=== PATIENT | male | born 1945 | race Caucasian/White ===

== ENCOUNTER 2016-04-26 10:45 | Emergency (ER) ==
[2016-04-26] MEDS ORDERED: NS 1,000 ML IV PRN (11:12)
--- NOTE | 2016-04-26 11:15 | PROVIDER DOCUMENTATION ---
HPI-Neurological Disorder - General Source: patient, family - History of Present Illness-Neuro Headache Location: reports: parietal (left) Severity: reports: mild, moderate Onset/Duration: reports: abrupt, 3 days ago Timing: reports: still present, improving Context: reports: other (confusion, visual changes, dizziness). denies: head injury, recent infection, impaired speech, facial droop, falling, seizure activity Character of Altered Mental Status: reports: confused Any recent trauma/injury?: reports: none Character of Deficits: reports: vision problem/glaucoma. denies: impaired speech, decreased ability to stand, decreased ability to walk, falling New weakness or altered sensation location:: reports: none Cognitive Baseline: alert, oriented x3 Gait Baseline: walks without assistance Associated Symptoms: reports: dizziness - General Chief Complaint: Brain Attack Stated Complaint: POSS STROKE Time Seen by Provider: 04/26/16 11:09 Allergies/Adverse Reactions: Patient Allergies Allergy/AdvReac Type Severity Reaction Status Date / Time Penicillins Allergy Severe ANAPHYLAXIS Verified 04/26/16 11:40 Home Medications: Home Medication List Medication Instructions Recorded Confirmed Last Taken Type Amlodipine [Norvasc] 5 mg PO DAILY 05/24/15 04/26/16 04/25/16 History Aspirin 81 mg PO DAILY 05/24/15 04/26/16 04/25/16 History Carvedilol [Coreg] 25 mg PO BID 05/24/15 04/26/16 04/25/16 History Clopidogrel Bisulfate [Plavix] 75 mg PO DAILY 05/24/15 04/26/16 04/25/16 History Furosemide [Lasix] 40 mg PO DIRECTED PRN 05/24/15 04/26/16 04/25/16 History Glimepiride 2 mg PO DAILY 05/24/15 04/26/16 04/25/16 History Hydrocodone Bit/Homatrop Me-Br 1 each PO PRN PRN 05/24/15 04/26/16 04/25/16 History [Hydrocodone Compound Syrup] Metformin HCl [Metformin HCl ER] 1,000 mg PO DIRECTED 05/24/15 04/26/1604/25 History Tamsulosin [Flomax] 0.4 mg PO DAILY 05/24/15 04/26/16 04/25/16 History Venlafaxine E.r. [Effexor Xr] 150 mg PO DAILY 05/24/15 04/26/16 04/25/16 History Bisacodyl [Dulcolax] 10 mg RI DAILY PRN PRN #0 supp 05/29/15 04/26/16 04/25/16 Rx Clotrimazole [Mycelex Suzy] 10 mg PO Q6HR #0 suzy 05/29/15 04/26/16 Rx Docusate Sodium [Colace] 100 mg PO BID #0 capsule 05/29/15 04/26/16 04/25/16 Rx Hydrocodone/APAP 5 mg/325 mg 1 each PO Q4H PRN PRN #0 tablet 05/29/15 04/26/16 04/25/16 Rx [Freedom-5] Insulin Detemir [Levemir] 20 unit SUBQ DAILY #0 insuln.pen 05/29/15 04/26/1601/30 Rx Lactobacillus Rhamnosus GG 1 each PO BID #0 capsule 05/29/15 04/26/16 04/25/16 Rx [Culturelle] Omeprazole [Prilosec] 40 mg PO DAILY@0700 #0 capsule 05/29/15 04/26/16 04/25/16 Rx Tizanidine [Zanaflex] 4 mg PO BID #0 tablet 05/29/15 04/26/16 04/25/16 Rx - History of Present Illness-Neuro Nature of Presenting Problem: Patient is a 70 y/o M that presents to the ER after 3 days ago while playing cards developed headache(left sided), double vision, and dizziness. Patient symptoms resolved today. Patient denies injury. Patient reports having diplopia and having to use cane since symptoms. His headache is gone but has dizziness. (Lenny No) Review of Systems - Adult - REVIEW OF SYSTEMS - ADULT Constitutional: denies: chills, fever Eyes: reports: double vision. denies: dry eyes, eye pain Ears, Nose, Mouth & Throat: denies: ear discharge, ear pain, sinus problem, throat pain, throat swelling Cardiovascular: denies: chest pain, palpitations, syncope Respiratory: denies: cough, shortness of breath, wheezing Gastrointestinal: denies: abdominal pain, diarrhea, nausea, vomiting Genitourinary: denies: dysuria, frequency, hematuria Musculoskeletal: reports: no symptoms reported Integumentary: reports: no symptoms reported Neurological: reports: dizziness/vertigo, headache/migraines, loss of balance, other (confusion). denies: numbness, seizure, slurred speech, syncope Psychiatric: reports: no symptoms reported Endocrine: reports: no symptoms reported Hematologic/Lymphatic: reports: no symptoms reported Allergic/Immunologic: reports: no symptoms reported All Other Systems: Reviewed and Negative Past History - Adult - PAST MEDICAL HISTORY-ADULT Review of Records: reports: Old Records Reviewed, Nursing Assessment Review, Medications Reviewed Cardiovascular: reports: CAD, HTN, SD Endocrine/Immune: reports: Diabetes Other Conditions: reports: other cancer (tongue) - PRIOR SURGERIES/PROCEDURES Surgical/Procedure History: reports: cholecystectomy, tonsillectomy, orthopedic (extremity) - IMMUNIZATION STATUS Childhood Immunizations: See Nurse Assessment Flu Vaccine: See Nurse Assessment - FAMILY HISTORY Family History: reviewed, not pertinent - SOCIAL HISTORY Smoking: quit greater than 1 year, cigarettes Living Situation: family Physical Exam- Neurological - Physical Exam-Neuro Initial Vital Signs Reviewed: Yes General Appearance: alert, no apparent distress Eye Exam: bilateral eye: normal inspection, PERRL HENMT: normocephalic/atraumatic, normal ENT inspection, TMs normal, pharynx normal Head Injury: no evidence of injury. 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 negative: sensory deficit Neurologic: statistical reporting analyst II-XII nml as tested, no motor/sensory deficits. negative: aphasia, facial droop, focal weakness, motor weakness, sensory deficit Integumentary: normal color, warm/dry Psych/Mental Status: normal mood/affect, normal thought content, normal thought process, oriented x 3 - Glascow Coma Scale Best Eye Response: (4) open spontaneously Best Verbal Response: (5) oriented Best Motor Response: (6) obeys commands Total Glascow Score: 15 Progress - EKG 1 Time of EKG reading by physician:: 10:55 EKG Read and Signed by:: Tip Chen EKG Interpretation (*Must complete 3 of following elements*): Normal Rate: 63 Rhythm: NSR [place]: normal QRS: normal RI Interval: normal ST Wave: normal - XRAY 1 XRAY Study: Chest Impression: Normal XRAY Interpretation: Nad per - CT/MRI 1 CT Study: Head Impression: Normal CT Results: negative per - CONSULTS/PCP/HOSPITALIST Notification #1 *Consult/PCP/Hospitalist*: Time Discussed: 13:35 Reason/Comments: make appointment next week Consult Disposition: F/U in office - PLAN OF CARE/RESULTS Progress/Plan/Lab Results: plan of care-cva work up Vital Signs Temp Pulse Resp BP Pulse Ox 04/26/16 11:50 98 F 63 20 135/79 98 04/26/16 10:57 62 18 149/72 100 Penicillins Allergy (Severe, Verified 04/26/16 11:40) ANAPHYLAXIS Amlodipine [Norvasc] 5 mg PO DAILY 05/24/15 Aspirin 81 mg PO DAILY 05/24/15 Carvedilol [Coreg] 25 mg PO BID 05/24/15 Clopidogrel Bisulfate [Plavix] 75 mg PO DAILY 05/24/15 Furosemide [Lasix] 40 mg PO DIRECTED PRN 05/24/15 Glimepiride 2 mg PO DAILY 05/24/15 Hydrocodone Bit/Homatrop Me-Br [Hydrocodone Compound Syrup] 1 each PO PRN PRN Metformin HCl [Metformin HCl ER] 1,000 mg PO DIRECTED 05/24/15 Tamsulosin [Flomax] 0.4 mg PO DAILY 05/24/15 Venlafaxine E.r. [Effexor Xr] 150 mg PO DAILY 05/24/15 Bisacodyl [Dulcolax] 10 mg RI DAILY PRN PRN #0 supp 05/29/15 Clotrimazole [Mycelex Suzy] 10 mg PO Q6HR #0 suzy 04/14/16 Docusate Sodium [Colace] 100 mg PO BID #0 capsule 05/29/15 Hydrocodone/APAP 5 mg/325 mg [Freedom-5] 1 each PO Q4H PRN PRN #0 tablet 05/29/15 Insulin Detemir [Levemir] 20 unit SUBQ DAILY #0 insuln.pen 05/29/15 Lactobacillus Rhamnosus GG [Culturelle] 1 each PO BID #0 capsule 05/29/15 Omeprazole [Prilosec] 40 mg PO DAILY@0700 #0 capsule 05/29/15 Tizanidine [Zanaflex] 4 mg PO BID #0 tablet 05/29/15 I&O 04/25/16 04/26/16 04/27/16 06:59 06:59 06:59 Output Total 50 Balance -50 Laboratory 04/26/16 04/26/16 04/26/16 12:00 12:00 12:00 WBC RBC Hgb Hct MCV MCH MCHC RDW Std Deviation Plt Count MPV Immature Gran % (Auto) Neut % (Auto) Lymph % (Auto) [place] % (Auto) Eos % (Auto) Baso % (Auto) Immature Gran # (Auto) Neut # (Auto) Lymph # (Auto) [place] # (Auto) Eos # (Auto) Baso # (Auto) PT 10.0 INR 0.98 PTT (Actin FS) 22.5 Sodium 139 Potassium 4.4 Chloride 103 Carbon Dioxide 25 Anion Gap 11 BUN 17 Creatinine 1.1 Estimated GFR/1.73 m2 > 60 BUN/Creatinine Ratio 15 Glucose 168 H Calculated Osmolality 283 Calcium 8.8 Total Bilirubin 0.38 AST 12 ALT 10 Alkaline Phosphatase 51 Troponin T < 0.010 Total Protein 6.7 Albumin 3.4 L Globulin 3.3 Albumin/Globulin Ratio 1.0 Urine Source Urine Color Urine Turbidity Urine pH Ur Specific [place] Urine Protein Ur Glucose (Stick) Ur Ketones (Stick) Urine Blood Urine Nitrite Urine Bilirubin Urobilinogen Dipstick Urine Leukocytes Urine WBC (Auto) Urine RBC (Auto) U Epithel Cells (Auto) Urine Bacteria (Auto) Urine Opiates Screen Ur Oxycodone Screen Ur Methadone, Qual Ur Barbiturates Screen Ur Phencyclidine Scrn Ur Amphetamines Screen U Benzodiazepines Scrn Urine Cocaine Screen U Cannabinoids Screen 04/26/16 04/26/1604/26/17 12:00 11:10 11:10 WBC 6.94 RBC 4.96 Hgb 13.8 L Hct 41.1 L MCV 82.9 MCH 27.8 MCHC 33.6 RDW Std Deviation 13.0 Plt Count 251 MPV 10.0 Immature Gran % (Auto) 0.0 Neut % (Auto) 73.1 Lymph % (Auto) 16.4 L [place] % (Auto) 7.2 Eos % (Auto) 2.7 Baso % (Auto) 0.6 Immature Gran # (Auto) 0.00 Neut # (Auto) 5.07 Lymph # (Auto) 1.14 L [place] # (Auto) 0.50 Eos # (Auto) 0.19 Baso # (Auto) 0.04 PT INR PTT (Actin FS) Sodium Potassium Chloride Carbon Dioxide Anion Gap BUN Creatinine Estimated GFR/1.73 m2 BUN/Creatinine Ratio Glucose Calculated Osmolality Calcium Total Bilirubin AST ALT Alkaline Phosphatase Troponin T Total Protein Albumin Globulin Albumin/Globulin Ratio Urine Source CLEAN CATCH Urine Color YELLOW Urine Turbidity CLEAR Urine pH 5.5 Ur Specific [place] 1.015 Urine Protein NEGATIVE Ur Glucose (Stick) 300 A Ur Ketones (Stick) NEGATIVE Urine Blood NEGATIVE Urine Nitrite NEGATIVE Urine Bilirubin NEGATIVE Urobilinogen Dipstick NORMAL Urine Leukocytes NEGATIVE Urine WBC (Auto) <10 Urine RBC (Auto) <10 U Epithel Cells (Auto) <10 Urine Bacteria (Auto) NEGATIVE Urine Opiates Screen NONE DETECTED Ur Oxycodone Screen PRESUMPTIVE POSITIVE A Ur Methadone, Qual NONE DETECTED Ur Barbiturates Screen NONE DETECTED Ur Phencyclidine Scrn NONE DETECTED Ur Amphetamines Screen NONE DETECTED U Benzodiazepines Scrn NONE DETECTED Urine Cocaine Screen NONE DETECTED U Cannabinoids Screen NONE DETECTED Orders Category Date Time Status Cardiac Monitoring DIRECTED Care 04/26/16 11:12 Active Finger Stick Blood Sugar (ED) DIRECTED Care 04/26/16 11:12 Active Misc. NRSG Communication Order DIRECTED Care 04/26/16 11:12 Active Misc. NRSG Communication Order DIRECTED Care 04/26/16 13:21 Active Oxygen Therapy- ED Nursing DIRECTED Care 04/26/16 11:12 Active Saline Loc NOW Care 04/26/16 11:12 Active CHEST-PORTABLE [RAD] Stat Exams 04/26/16 11:12 Taken HEAD W/O CONTRAST [CT] Stat Exams 04/26/16 11:12 Draft CBC WITH ELECTRONIC DIFF [HEME] Stat Lab 04/26/16 12:00 Completed COMPREHENSIVE METABOLIC PANEL [CHEM] Stat Lab 04/26/16 12:00 Completed PROTIME WITH INR [COAG] Stat Lab 04/26/16 12:00 Completed PTT [COAG] Stat Lab 04/26/16 12:00 Completed TROPONIN T Stat Lab 04/26/16 12:00 Completed URINALYSIS W/POSS RFLX CULT [URINALYSIS] Stat Lab 04/26/16 11:10 Completed URINE DRUG SCREEN Stat Lab 04/26/16 11:10 Completed 0.9% Sodium Chloride Inj [Ns] 1,000 ml Med 04/26/16 11:12 Active IV 250 mls/hr EKG [EKG] Stat Ther 04/26/16 10:49 Ordered EKG [EKG] Stat Ther 04/26/16 11:12 Ordered pt will be d/c home f/u with next week, pt is clinically stable, understood instructions and results (Lenny No) Departure - Departure Time of Disposition Order: 13:40 Certified Medical Emergency: Emergent - Departure DIAGNOSIS: Diplopia, Mini stroke Disposition: HOME 01 Condition: Stable Additional Instructions: ED Follow Up Instructions: You have been treated by a care provider in the Emergency Department. These instructions are being provided to you so you can have an understanding of how to care for yourself upon discharge. Upon discharge from the Emergency Department, you are responsible for making arrangements for follow-up care by a physician of your choice. Take all prescribed medications as directed. Return to the Emergency Department immediately for any new or worsening symptoms. You may call the Physician Referral phone number at [phone] to obtain a list of Physicians who are taking new patients. Referrals: Calos Marshall MD [Primary Care Provider] - (call today for appointment) Julio Del Rio Jr, MD [STAFF PHYSICIAN] - Call for Appoint. 1-2days Instructions: Diplopia Attestation - Scribe Verification/Attestation Scribe:: Lenny No Acting as Scribe for:: Tip Chen Scribe documention review:: This chart was documented by a scribe and accurately reflects the service the provider performed and the decisions made by the provider. Physician Attestation - Physician Attestation I, the provider, attest to the following statement:: Tip Chen Physician documentation Attestation:: This documentation recorded by the scribe accurately reflects the service I personally performed and the decisions made by me. - NIH Stroke Scale NIH Type: Initial Evaluation Level of Consciousness: 0-Alert LOC Questions (ask month and age): 0-Answers Both Correctly Best Gaze (horizontal eye movement): 0-Normal Visual (use finger movement, counting or visual threat): 0-No Visual Loss Facial Palsy (show teeth or raise eyebrows & close eyes tght: 0-Symmetrical Movement Motor Function-left arm: 0-Normal Motor Function-right arm: 0-Normal Motor Function-left le-Normal Motor Function-right le-Normal Limb Ataxia([id number], or heel to ortega): 0-No Ataxia Sensory(pin prick to face,arms,trunk,legs-compare side/side): 0-No Ataxia Best Language(name item/read sentence.Ex-Down to Earth): 0-No Aphasia Dysarthria(Pt read words or say words Ex.Mama,Tip-Top,Thanks: 0-Normal Articulation Extinction and Inattention: 0-Normal NIH Total Score: 0 Modified Bartholomew Score Criteria: 0-no symptoms Stroke tPA Guidelines - Inclusion Criteria for IV tPA 18 years old or older: Yes Ischemic stroke with measurable deficit: No Onset <3 hours ago *OR* 3-4.5 hours ago: No - Exclusion Criteria for IV tPA Evidence of AVM, neoplasm, aneurysm: No Seizure at stroke onset: No - Additional Exclusion Criteria for IV tPA Currently on Coumadin: No Patient older than 80: No Prior stroke and diabetes: No Baseline NIHSS score > 25: No - Relative Contraindications to IV tPA CT reveals extensive area of infarct (>1/3 MCA territory): No Minor or rapidly improving stroke symptoms: Yes Major Surgery or Serious Trauma In Previous 14 Days: No AMI within 3 months: No Gastrointestinal or Urinary Tract hemorrhage in Past 21 Days: No Post - AMI pericarditis: No
[2016-04-26 11:23] LABS: URINE CULTURE NEEDED? NO; URINE MICRO REVIEW NEEDED? NO; URINE SOURCE CLEAN CATCH
[2016-04-26 11:38] LABS: BILIRUBIN URINE NEGATIVE (NEGATIVE); BLOOD URINE NEGATIVE (NEGATIVE); COLOR YELLOW; GLUCOSE URINE 300 mg/dL (NEGATIVE); LEUKOCYTES URINE NEGATIVE (NEGATIVE); NITRITE URINE NEGATIVE (NEGATIVE); PH URINE 5.5; PROTEIN URINE NEGATIVE (NEGATIVE); SP GRAVITY URINE 1.015; TURBIDITY URINE CLEAR (CLEAR); UROBILINOGEN URINE NORMAL (NORMAL)
[2016-04-26 11:39] LABS: UR EPITHELIAL CELLS <10 /HPF (<10); URINE BACTERIA NEGATIVE /HPF; URINE RBC <10 /HPF (<10); URINE WBC <10 /HPF (<10)
[2016-04-26 11:59] LABS: UR AMPHETAMINES QUAL NONE DETECTED (NONE DETECT); UR BARBITUATES QUAL NONE DETECTED (NONE DETECT); UR BENZODIAZEPIN QUAL NONE DETECTED (NONE DETECT); UR CANNABINOIDS QUAL NONE DETECTED (NONE DETECT); UR COCAINE QUAL NONE DETECTED (NONE DETECT); UR METHADONE QUAL NONE DETECTED (NONE DETECT); UR OPIATES QUAL NONE DETECTED (NONE DETECT); UR OXYCODONE QUAL PRESUMPTIVE POSITIVE (NONE DETECT); UR PCP QUAL NONE DETECTED (NONE DETECT)
--- NOTE | 2016-04-26 12:07 | Diag Imaging Result Document ---
PROCEDURE NAME: HEAD W/O CONTRAST - 04/26/[address], 04/26/2016: A CT dose reduction protocol was used. COMPARISON: None. FINDINGS: The ventricles and sulci are normal in size and contour. There is no mass, hemorrhage, or evidence of acute ischemia. The bony calvaria is intact. The visualized paranasal sinuses and mastoid air cells are clear. IMPRESSION: Negative head CT. MTDD
[2016-04-26 12:17] LABS: MANUAL DIFF NEEDED? NO
[2016-04-26 12:18] LABS: BASO% 0.6 % (0.0-0.8); EOS# 0.19 X1000 (0.0-0.7); EOS% 2.7 % (0.0-10.0); HEMATOCRIT 41.1 % (42.0-52.0); HEMOGLOBIN 13.8 g/dL (14.0-18.0); LYMPH# 1.14 X1000 (1.2-3.4); LYMPH% 16.4 % (20.5-51.1); MCH 27.8 PG (27-31); MCHC 33.6 g/dL (33-37); MCV 82.9 FL (81-99); MONO% 7.2 % (1.7-9.3); NEUT% 73.1 % (42.2-75.2); PLT 251 X1000 (130-400); RBC 4.96 XMIL (4.7-6.1)
[2016-04-26 12:39] LABS: AGAP 11; ALBUMIN 3.4 g/dL (3.5-5.0); ALKALINE PHOSPHATASE 51 U/L (32-122); BUN 17 mg/dL (8-22); CALCIUM 8.8 mg/dL (8.8-10.2); CHLORIDE 103 mmol/L (98-107); COSMO 283; GOT 12 U/L (10-34); GPT 10 U/L (10-44); POTASSIUM 4.4 mmol/L (3.5-5.1); SODIUM 139 mmol/L (136-145); TCO2 25 mmol/L (25-35); TOTAL BILIRUBIN 0.38 mg/dL (0.20-1.00); TOTAL PROTEIN 6.7 g/dL (6.3-8.3)
[2016-04-26 12:44] LABS: INR 0.98; PTT 22.5 Seconds (22.0-36.0)
[2016-04-26 13:44] VITALS: BP 125/67
--- NOTE | 2016-04-26 15:02 | EKG Report ---
Test Performed on : 04/26/2016 10:55:22 AM Test Reason : stroke like sx Blood Pressure : / mmHG Vent. Rate : 063 BPM Atrial Rate : 063 BPM P-R Int : 170 ms QRS Dur : 084 ms QT Int : 392 ms P-R-T Axes : 027 -16 028 degrees QTc Int : 401 ms Normal sinus rhythm. Normal ECG When compared with ECG of 12-FEB-2016 06:50, Criteria for Anterior infarct are no longer present Unconfirmed Result
--- NOTE | 2016-04-26 16:02 | Diag Imaging Result Document ---
PROCEDURE NAME: CHEST-PORTABLE - 04/26/2016 PORTABLE CHEST X-RAY: COMPARISON: 06/11/2015. FINDINGS: There is improvement in the left basilar atelectasis. No focal infiltrates, pneumothorax, or pleural effusion at this time. Heart size is grossly normal. IMPRESSION: No acute disease.
== END 2016-04-26 13:56 | disposition home or self-care (01) ==
LOC: ED 10:45
DX: G45.9 Transient cerebral ischemic attack, unspecified (principal); H53.2 Diplopia; R51 Headache; R42 Dizziness and giddiness; R26.81 Unsteadiness on feet; R41.0 Disorientation, unspecified; I25.10 Atherosclerotic heart disease of native coronary artery without angina pectoris; I10 Essential (primary) hypertension; Z79.899 Other long term (current) drug therapy; I25.2 Old myocardial infarction; E11.9 Type 2 diabetes mellitus without complications; Z85.810 Personal history of malignant neoplasm of tongue; Z87.891 Personal history of nicotine dependence; Z79.4 Long term (current) use of insulin; Z79.02 Long term (current) use of antithrombotics/antiplatelets; Z79.82 Long term (current) use of aspirin
CPT/HCPCS: 70450; 71010; 80053; 81001; 82948; 84484; 85025; 85610; 85730; 93005; G0480; J7030; 80324; 80345; 80346; 80349; 80353; 80358; 80361; 80365; 83992